=== PATIENT | female | born 1985 | race Caucasian/White ===

== ENCOUNTER 2017-09-22 13:33 | Emergency (ER) | payer OTHER ==
[~2017-09-22] VITALS: Ht 152.4 cm; Wt 59.1 kg
[~2017-09-22 13:33] MED LIST: ALBUAER2 INH; EFFSR150 PO
[2017-09-22 13:50] VITALS: TEMP 36.9; Ht 152.4 cm; Wt 59.1 kg
[2017-09-22] MEDS ORDERED: CYCLOBENZAPRINE HCL 10 MG TAB PO STA (14:17)
[2017-09-22] MEDS ORDERED: DEXAMETHASONE **PF** INJ 10 MG/ML VIAL IM STA (14:17)
--- NOTE | 2017-09-22 14:49 | DIAGNOSTIC IMAGING REPORT ---
LUMBAR SPINE 5 VIEWS CLINICAL HISTORY: Low back pain. FINDINGS: 5 views of the lumbar spine are compared to study dated 01/16/2014. The skeletal structures are well mineralized. There is no radiographic evidence of fracture or malalignment. Vertebral body height and alignment are maintained. The transverse and spinous processes are intact. There is no evidence of spondylolysis. The intervertebral disc spaces are well-maintained. The visualized bony pelvis appears intact. There is a nonobstructed abdominal bowel gas pattern. There is moderate to severe constipation. Cholecystectomy clips are noted. IMPRESSION: 1. No acute bony abnormality is seen involving the lumbosacral spine. 2. Moderate to severe constipation. Electronically signed by: Chico Myers M.D. 09/22/2017 2:48 PM Dictated Date/Time: 09/22/2017 2:47 PM
[2017-09-22] MEDS ORDERED: ALPR0.25 PO (15:23)
[2017-09-22] MEDS ORDERED: VNTHFA/IN INH (15:23)
[2017-09-22] MEDS ORDERED: IBUP-103 PO (15:23)
[2017-09-22] MEDS ORDERED: CYCL10TA6 PO (15:29)
[2017-09-22] MEDS ORDERED: METH4PAK PO (15:29)
--- NOTE | 2017-09-22 15:31 | EMERGENCY ROOM VISIT NOTE ---
ED Visit Note First contact with patient: 14:02 CHIEF COMPLAINT: Low back pain HISTORY OF PRESENT ILLNESS: This is a 32-year-old female patient presents to the emergency department, ambulatory, complaining of pain in the low back which began yesterday at approximately 2:00 PM. The patient states she was sitting on the end of her bed, changing clothes, when she placed her right foot over her left knee, and bent over to pull her socks off. She states at that time, she felt her back seized up, and with attempts to get up, she was unable to stand completely straight. The pain was gradual in onset, is now constant and worse with movement. The patient notes the pain as sharp spasms and a /10. The patient has taken 1 dose of 800 mg ibuprofen without relief of the pain. The patient denies any loss of control of their bowel or bladder functions. There has been no leg numbness or weakness, and no change in sensation. No nausea or vomiting or abdominal pain. No chest pain or shortness of breath. The patient has not had prior back injuries. No dysuria or increased urinary frequency. REVIEW OF SYSTEMS: A 10 system review of systems was performed with positives and pertinent negatives listed in the history of present illness. All other systems were reviewed and are negative. ALLERGIES: Diclofenac, penicillins MEDICATIONS: Albuterol PMH: Asthma SOCIAL HISTORY: The patient lives locally with family. She denies drug, alcohol use. She admits to using an e-cigarette. PHYSICAL EXAM: VITALS: Vitals are noted on the nurse's note and reviewed by myself. Vital signs stable. GENERAL: This is a 32-year-old white female, in no acute distress, nondiaphoretic, well-developed well-nourished. SKIN: The skin was without rashes, erythema, edema, or bruising. Capillary refill less than 2 seconds. NECK: Supple without nuchal rigidity. No cervical spine tenderness. No paraspinous muscle tenderness. HEART: Regular rate and rhythm without murmurs gallops or rubs. LUNGS: Clear to auscultation bilaterally without wheezes, rales or rhonchi. ABDOMEN: Positive bowel sounds x 4. Normal tympanic percussion. Soft, nontender, without masses or organomegaly. Gonzalez sign negative. MUSCULOSKELETAL: No muscle atrophy, erythema, or edema noted of the back. There is no tenderness over the lumbar spinous processes. There is minimal tenderness over the paraspinous muscles bilaterally. There is SI joint tenderness bilaterally.. There is no tenderness over the thoracic spine or paraspinous muscles. There are muscle spasms present. The patient is slow to move around with maximum tenderness with position changes. Negative bilateral straight leg raise test. NEURO: Patient was alert and oriented to person place and time. Normal sensation to light and sharp touch. Deep tendon reflexes 2+ in the lower extremities. Dorsalis pedis pulse 2+ bilaterally. Strength 5/5 and equal in the bilateral lower extremities. RADIOLOGY: LUMBAR SPINE 5 VIEWS CLINICAL HISTORY: Low back pain. FINDINGS: 5 views of the lumbar spine are compared to study dated 01/16/2014. The skeletal structures are well mineralized. There is no radiographic evidence of fracture or malalignment. Vertebral body height and alignment are maintained. The transverse and spinous processes are intact. There is no evidence of spondylolysis. The intervertebral disc spaces are well-maintained. The visualized bony pelvis appears intact. There is a nonobstructed abdominal bowel gas pattern. There is moderate to severe constipation. Cholecystectomy clips are noted. IMPRESSION: 1. No acute bony abnormality is seen involving the lumbosacral spine. 2. Moderate to severe constipation. Electronically signed by: Chico Myers M.D. 09/22/2017 2:48 PM Dictated Date/Time: 09/22/2017 2:47 PM EMERGENCY DEPARTMENT COURSE: The patient was seen and evaluated as above. She presents to the emergency department today complaining of low back pain with radicular symptoms. X-rays were reviewed by myself and radiologist as above. The patient was given Decadron and Flexeril for her discomfort with no relief of her symptoms. She states she did not receive the medications until she returned from x-ray, so feels that moving around at x-ray worsened her back pain. I did offer to allow the patient to sit here in the emergency department for the medications to kick in, but she states "I just want to go home and rest ". I offered narcotic pain medication, the patient declines. The patient will be started on steroids and muscle relaxers at home, and I gave her strict instructions on proper use of these medications. Discharge instructions reviewed, the patient was discharged home in good condition. I attest that I have personally reviewed the patient's current medication list. Patient was found to have normal blood pressure on screening and does not require follow-up. Etiologies such as lumbago, sciatica, cauda equina, epidural abscess, osteomyelitis, fracture, aortic disease, metastatic disease, infection, renal colic, gastrointestinal, as well as others were entertained. DIAGNOSIS: Lumbar strain, lumbar radiculopathy Problem List Medical Problems: (1) Asthma Status: Chronic (2) section Status: Resolved (3) Cholecystectomy Status: Resolved (4) Depression Status: Chronic (5) History of - miscarriage Status: Resolved (6) Personality Disorder Status: Chronic (7) [place] Teeth Removal Status: Resolved Current/Historical Medications Scheduled Cyclobenzaprine Hcl (Flexeril), 10 MG PO TID Methylprednisolone (Medrol Dosepak), 0 PO DAILY Scheduled PRN Albuterol Hfa (Ventolin Hfa), 2 PUFFS INH Q6H PRN for SOB/Wheezing Alprazolam (Xanax), 0.25 MG PO TID PRN for Anxiety Ibuprofen Tab (Advil), 800 MG PO Q6H PRN for Pain Allergies Coded Allergies: Diclofenac (Unverified Allergy, Intermediate, RASH VOMITING PALPATIONS, ) Penicillins (Verified Allergy, Unknown, 06/19/13) Vital Signs Date Time Temp Pulse Resp B/P (MAP) Pulse Ox O2 Delivery O2 Flow Rate FiO2 09/22/17 15:52 74 18 137/78 99 09/22/17 13:50 36.9 74 18 143/84 100 Room Air Medications Administered Medications (Trade) Dose Ordered Sig/Parisa Route Start Time Stop Time Status Last Admin Dose Admin Dexamethasone Sodium Phosphate (Dexamethasone Inj Pf) 8 mg NOW STAT IM 09/22/17 14:17 09/22/17 14:19 DC 09/22/17 14:54 8 MG Cyclobenzaprine HCl (Flexeril Tab) 10 mg NOW STAT PO 09/22/17 14:17 09/22/17 14:19 DC 09/22/17 14:54 10 MG Departure Information Impression Primary Impression: Strain of lumbar region Additional Impression: Lumbar radiculopathy, acute Dispostion Home / Self-Care Condition GOOD Prescriptions Methylprednisolone (MEDROL DOSEPAK) 4 Mg Nain 0 PO DAILY, #1 PKT Prov: Lorraine Logan, PARAM 09/22/17 Cyclobenzaprine Hcl (FLEXERIL) 10 Mg Tab 10 MG PO TID, #15 TAB Prov: Lorraine Logan, PARAM 09/22/17 Referrals Sal Sousa M.D. (PCP) Patient Instructions ED Low Back Pain Injury, ED Sciatica, My [facility] Additional Instructions You have been treated in the Emergency Department for Back Pain. You have received pain medicine in the emergency department which impairs your ability to operate a vehicle. It is illegal for you to drive after receiving these medicines. You have been prescribed Flexeril (cyclobenzaprine) 1 tabs orally, three times per day. Do NOT exceed 30 mg (3 tabs) per day. Take your first dose at bedtime as it can make you drowsy. Always take all medications as prescribed. You have been prescribed a Medrol Dosepak. This is a steroid which will help decrease your inflammation, redness, and itch. Take the medicine as prescribed. Take the ENTIRE 6 day course of the steroids. No NSAIDS (Advil, Motrin, ibuprofen, Aleve, naproxen) while on steroids. For pain control, you can use the following [id number] medicines (if >12 yo): Ibuprofen(Motrin, Advil) may be used for fever or pain. Use 600mg every six hours as needed. Take with food. Avoid using more than 2400mg in a 24 hour period. Do not use 2400mg per day for more than three consecutive days without physician direction. Prolonged inappropriate use can lead to stomach upset or ulcers. Do not take this or other NSAIDs while on steroids. (AND/OR) Acetaminophen(Tylenol) may be used for fever or pain. Use 1000mg every six hours as needed. Avoid using more than 3000mg in a 24 hour period. If this is an acute injury, ice can be applied to the area of pain for the first 3 days to help decrease pain and inflammation. After the first 3 days, a heating pad can be used over the area for continued soothing relief. You should schedule a follow-up appointment in 2-3 days with your Primary Care Provider for further evaluation and treatment of your back pain. Return to the Emergency Department if your current symptoms worsen despite treatment course outlined above, or if you develop any of the following symptoms : intractable pain despite aforementioned treatment course, loss of control of your bowel or bladder, numbness or tingling in your groin, or development of a fever. Work Instructions Return To Work: 3 days Problem Qualifiers Primary Impression: Strain of lumbar region Encounter type: initial encounter Qualified Codes: S39.012A - Strain of muscle, fascia and tendon of lower back, initial encounter
[2017-09-22 15:52] VITALS: BP 137/78; PULSE 74; O2SAT 99
== END 2017-09-22 15:54 | disposition home or self-care (01) ==
LOC: C.EDB 13:36 → C.EDD 15:54
DX: S39.012A Strain of muscle, fascia and tendon of lower back, initial encounter (principal); M54.16 Radiculopathy, lumbar region; X50.1XXA Overexertion from prolonged static or awkward postures, initial encounter; Y92.013 Bedroom of single-family (private) house as the place of occurrence of the external cause; J45.909 Unspecified asthma, uncomplicated; F32.9 Major depressive disorder, single episode, unspecified; F60.9 Personality disorder, unspecified; Z88.0 Allergy status to penicillin; Z88.8 Allergy status to other drugs, medicaments and biological substances

== ENCOUNTER 2018-03-12 16:09 | Outpatient (CLI) | payer OTHER ==
[~2018-03-12] VITALS: Ht 152.4 cm; Wt 65.0 kg
[~2018-03-12 16:09] MED LIST changes: -ALBUAER2 INH; -EFFSR150 PO; +ONDA4TAB10 SL; +PRENTAB26 PO; +TYLOTC500 PO; +VNTHFA/IN INH
--- NOTE | 2018-03-12 17:44 | Progress Note ---
Progress Note Date of Service Mar 12, 2018. Progress Note 26 F P2002 at 28 weeks seen in ER for decreased movement. NST Cat 1. Will encourage increased regular diet and follow up in office. Patient discharged to home.
[2018-03-12 18:01] VITALS: Ht 152.4 cm; Wt 65.0 kg
== END 2018-03-12 18:00 | disposition home or self-care (01) ==
LOC: C.OPB 16:09 → C.LD 16:11 → C.OPB 18:00
PROVIDERS: ATTEND Obstetrics & Gynecology
DX: O36.8130 Decreased fetal movements, third trimester, not applicable or unspecified (principal); Z3A.28 28 weeks gestation of pregnancy